=== PATIENT | female | born 1995 ===

== ENCOUNTER 2021-02-16 22:40 | Emergency (ER) | payer OTHER ==
--- NOTE | 2021-02-17 01:03 | ER ---
Nurse's Notes [facility] Name: Elaina Villegas Age: 25 yrs Sex: Female : 1995 Arrival Date: 02/16/2021 Time: 22:41 Bed 17 Private MD: Diagnosis: Concussion without loss of consciousness;Contusion of unspecified part of head;Sprain of ligaments of cervical spine Presentation: 02/16 22:52 Acuity: TEO 3 sg 22:52 Chief complaint: Patient states: I was jumping on a cornhole board when I slipped and sg fell, hitting the back of my head. Denies LOC but states cannot remember who won or lost the game. Pt states she can recall events right before the fall and after the fall, denies vomiting, denies any bleeding at this time. Coronavirus screen: Client denies travel out of the [place] in the last 14 days. At this time, the client does not indicate any symptoms associated with coronavirus-19. Ebola Screen: Patient negative for fever greater than or equal to 101.5 degrees Fahrenheit, and additional compatible Ebola Virus Disease symptoms Patient denies exposure to infectious person. Patient denies travel to an Ebola-affected area in the 21 days before illness onset. No symptoms or risks identified at this time. Initial Sepsis Screen: Does the patient meet any 2 criteria? No. Patient's initial sepsis screen is negative. Does the patient have a suspected source of infection? No. Patient's initial sepsis screen is negative. Risk Assessment: Do you want to hurt yourself or someone else? Patient reports no desire to harm self or others. Onset of symptoms was February 16, 2021. Care prior to arrival: None. Transition of care: patient was not received from another setting of care. 22:52 Method Of Arrival: Ambulatory sg Historical: - Allergies: 23:36 Celebrex; sg - Home Meds: 23:36 None [Active]; sg - PMHx: 23:36 PCOS; Endometrosis; sg - PSHx: 23:36 ACL; sg - Immunization history:: Adult Immunizations up to date. - Social history:: Smoking status: Patient denies any tobacco usage or history of. Screenin/30 00:09 Abuse screen: Denies threats or abuse. Nutritional screening: No deficits noted. em Tuberculosis screening: No symptoms or risk factors identified. Fall Risk None identified. Assessment: 00:30 General: Appears in no apparent distress. uncomfortable, Behavior is calm, cooperative, em appropriate for age. Pain: Complains of pain in occipital area, base of the skull and left sternocleidomastoid Pain currently is 6 out of 10 on a pain scale. 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 Gait is steady, Speech is normal, Facial symmetry appears normal, Reports a syncopal episode. Cardiovascular: Capillary refill < 3 seconds Patient's skin is warm and dry. Respiratory: Airway is patent Respiratory effort is even, unlabored, Respiratory pattern is regular, symmetrical. GI: Patient currently denies nausea, vomiting. Derm: Skin is intact, is healthy with good turgor, Skin is pink, warm \T\ dry. Musculoskeletal: Capillary refill < 3 seconds, Range of motion: intact in all extremities. 02:00 Reassessment: Patient appears in no apparent distress at this time. Patient and/or em family updated on plan of care and expected duration. Pain level reassessed. Patient is alert, oriented x 3, equal unlabored respirations, skin warm/dry/pink. rates pain 5/10 Patient states feeling better. Vital Signs: 02/16 22:52 Pulse 77; Resp 18; Pulse Ox 98% on R/A; Weight 92.99 kg; Height 5 ft. 9 in. (175.26 sg cm); Pain 6/10; 02/17 00:30 Temp 97.8; em 00:30 BP 126 / 78; em 02/16 22:52 Body Mass Index 30.27 (92.99 kg, 175.26 cm) sg ED Course: 02/16 22:41 Patient arrived in ED. ag3 22:52 Arm band placed on. sg 22:53 Triage completed. sg 23:34 Nawaf Hopkins MD is Attending Physician. tw4 23:53 Paulo Theodore, RN is Primary Nurse. em 02/17 00:21 CT Head Brain wo Cont In Process Unspecified. EDMS 00:30 Patient has correct armband on for positive identification. Bed in low position. Call em light in reach. Adult w/ patient. Pulse ox on. NIBP on. 00:30 Patient maintains SpO2 saturation greater than 95% on room air. em 01:48 CT C Spine In Process Unspecified. EDMS 02:25 No provider procedures requiring assistance completed. Patient did not have IV access em during this emergency room visit. Administered Medications: 01:08 Drug: TORadol 60 mg Route: IM; Site: right gluteus; em 01:45 Follow up: Response: No adverse reaction; Marked relief of symptoms; Pain is decreased em 01:08 Drug: Tylenol 1000 mg Route: PO; em 01:46 Follow up: Response: No adverse reaction; Marked relief of symptoms; Pain is decreased em 01:45 Drug: Flexeril (cyclobenzaprine) 10 mg Route: PO; em 02:27 Follow up: Response: No adverse reaction; Marked relief of symptoms; Pain is decreased em Outcome: 01:02 Discharge ordered by . tw4 02:15 Discharge ordered by . tw4 02:25 Discharged to home ambulatory, with family. em 02:25 Condition: stable 02:25 Discharge instructions given to patient, family, Instructed on discharge instructions, follow up and referral plans. medication usage, Demonstrated understanding of instructions, follow-up care, medications, Prescriptions given X 3. 02:28 Patient left the ED. em Signatures: Dispatcher [employer] Braxton Aguilar RN RN sg Munoz, Edgar, RN RN Nawaf Ellison MD MD tw4 Evelyn Vang ag3
--- NOTE | 2021-02-17 01:03 | EDPHYS ---
Physician Documentation [facility] Name: Elaina Villegas Age: 25 yrs Sex: Female : 1995 Arrival Date: 02/16/2021 Time: 22:41 Bed 17 Private MD: ED Physician Nawaf Hopkins HPI: 02/17 01:27 This 25 yrs old Female presents to ER via Ambulatory with complaints of Fall Injury, tw4 Head Injury-Adult. 01:27 Details of fall: The patient fell from an upright position, while standing, during tw4 sports. Onset: The symptoms/episode began/occurred today. Associated injuries: The patient sustained no obvious injury. Severity of symptoms: At their worst the symptoms were moderate, in the emergency department the symptoms are unchanged. The patient has not experienced similar symptoms in the past. Historical: - Allergies: 02/16 23:36 Celebrex; sg - Home Meds: 23:36 None [Active]; sg - PMHx: 23:36 PCOS; Endometrosis; sg - PSHx: 23:36 ACL; sg - Immunization history:: Adult Immunizations up to date. - Social history:: Smoking status: Patient denies any tobacco usage or history of. ROS: 02/17 01:27 Constitutional: Negative for fever, chills, and weight loss, Eyes: Negative for injury, tw4 pain, redness, and discharge, Cardiovascular: Negative for chest pain, palpitations, and edema, Respiratory: Negative for shortness of breath, cough, wheezing, and pleuritic chest pain, Abdomen/GI: Negative for abdominal pain, nausea, vomiting, diarrhea, and constipation, Back: Negative for injury and pain, MS/Extremity: Negative for injury and deformity. Exam: 01:27 Constitutional: This is a well developed, well nourished patient who is awake, alert, tw4 and in no acute distress. 01:27 Chest/axilla: Normal chest wall appearance and motion. Nontender with no deformity. No lesions are appreciated. Cardiovascular: Regular rate and rhythm with a normal S1 and S2. No gallops, murmurs, or rubs. Normal PMI, no JVD. No pulse deficits. Respiratory: Lungs have equal breath sounds bilaterally, clear to auscultation and percussion. No rales, rhonchi or wheezes noted. No increased work of breathing, no retractions or nasal flaring. Abdomen/GI: Soft, non-tender, with normal bowel sounds. No distension or tympany. No guarding or rebound. No evidence of tenderness throughout. Back: No spinal tenderness. No costovertebral tenderness. Full range of motion. Skin: Warm, dry with normal turgor. Normal color with no rashes, no lesions, and no evidence of cellulitis. MS/ Extremity: Pulses equal, no cyanosis. Neurovascular intact. Full, normal range of motion. Neuro: Awake and alert, GCS 15, oriented to person, place, time, and situation. Cranial nerves II-XII grossly intact. Motor strength 5/5 in all extremities. Sensory grossly intact. Cerebellar exam normal. Normal gait. 01:27 Head/face: Noted is contusion, that is superficial, of the right occipital area. Vital Signs: 02/16 22:52 Pulse 77; Resp 18; Pulse Ox 98% on R/A; Weight 92.99 kg; Height 5 ft. 9 in. (175.26 sg cm); Pain 6/10; 02/17 00:30 Temp 97.8; em 00:30 BP 126 / 78; em 02/16 22:52 Body Mass Index 30.27 (92.99 kg, 175.26 cm) sg MDM: 02/16 23:57 Patient medically screened. tw4 02/17 03:34 Differential diagnosis: abrasion, closed head injury, contusion, fracture. Data tw4 reviewed: vital signs, nurses notes. Data reviewed: lab test result(s), CBC, electrolytes, radiologic studies, CT scan. Data interpreted: Pulse oximetry: Interpretation: normal. Counseling: I had a detailed discussion with the patient and/or guardian regarding: the historical points, exam findings, and any diagnostic results supporting the discharge/admit diagnosis, lab results, radiology results. Special discussion: Based on the patient's history, exam and DX evaluation, there is no indication for emergent intervention or inpatient TX. It is understood by the patient/guardian that if the SXs persist or worsen they need to return immediately for re-evaluation. I discussed with the patient/guardian in detail that at this point there is no indication for admission to the hospital. It is understood, however, that if the symptoms persist or worsen the patient needs to return immediately for re-evaluation. 02/16 23:57 Order name: CT Head Brain wo Cont tw4 02/17 01:09 Order name: CT C Spine tw4 Administered Medications: 01:08 Drug: TORadol 60 mg Route: IM; Site: right gluteus; em 01:45 Follow up: Response: No adverse reaction; Marked relief of symptoms; Pain is decreased em 01:08 Drug: Tylenol 1000 mg Route: PO; em 01:46 Follow up: Response: No adverse reaction; Marked relief of symptoms; Pain is decreased em 01:45 Drug: Flexeril (cyclobenzaprine) 10 mg Route: PO; em 02:27 Follow up: Response: No adverse reaction; Marked relief of symptoms; Pain is decreased em Disposition: 02/17/21 02:15 Discharged to Home. Impression: Concussion without loss of consciousness, Contusion of unspecified part of head, Sprain of ligaments of cervical spine. - Condition is Stable. - Discharge Instructions: Contusion, Post-Concussion Syndrome, Cervical Sprain, Head Injury, Adult, [id number]. - Prescriptions for Ibuprofen 800 mg Oral Tablet - take 1 tablet by ORAL route every 8 hours As needed take with food; 30 tablet. Tramadol 50 mg Oral Tablet - take 1 tablet by ORAL route every 8 hours as needed; 12 tablet. Cyclobenzaprine 5 mg Oral Tablet - take 1 tablet by ORAL route 3 times per day As needed; 15 tablet. - Medication Reconciliation Form, Thank You Letter, Antibiotic Education, Prescription Opioid Use form. - Follow up: Private Physician; When: Upon discharge from the Emergency Department; Reason: Recheck today's complaints, Continuance of care, Re-evaluation by your physician. - Problem is new. - Symptoms have improved. Signatures: Dispatcher [employer] EDBraxton Dykes RN RN Paulo Theodore RN RN em Wadley, Terrence, MD MD tw4 Corrections: (The following items were deleted from the chart) 01: 01:02 02/17/2021 01:02 Discharged to Home. Impression: Concussion without loss of tw4 consciousness; Contusion of unspecified part of head. Condition is Stable. Forms are Medication Reconciliation Form, Thank You Letter, Antibiotic Education, Prescription Opioid Use. Follow up: Private Physician; When: Upon discharge from the Emergency Department; Reason: Recheck today's complaints, Continuance of care, Re-evaluation by your physician. Problem is new. Symptoms have improved. tw4 02:28 02:15 02/17/2021 02:15 Discharged to Home. Impression: Concussion without loss of em consciousness; Contusion of unspecified part of head; Sprain of ligaments of cervical spine. Condition is Stable. Prescriptions for Ibuprofen 800 mg Oral Tablet - take 1 tablet by ORAL route every 12 hours As needed take with food; 20 tablet. and Forms are Medication Reconciliation Form, Thank You Letter, Antibiotic Education, Prescription Opioid Use. Follow up: Private Physician; When: Upon discharge from the Emergency Department; Reason: Recheck today's complaints, Continuance of care, Re-evaluation by your physician. Problem is new. Symptoms have improved. tw4
[2021-02-17] MEDS ORDERED: ACETAMINOPHEN 500 MG TAB ONE (01:20)
[2021-02-17] MEDS ORDERED: KETOROLAC 30 MG/ML INJ ONE (01:21)
[2021-02-17] MEDS ORDERED: CYCLOBENZAPRINE 10 MG TAB ONE (02:00)
[2021-02-17 02:35] VITALS: O2SAT 98
[2021-02-17 02:36] VITALS: BP 126/78; TEMP 97.8
--- NOTE | 2021-02-17 12:18 | RAD REPORT ---
EXAM DESCRIPTION: Head Brain Wo Cont 02/17/2021 12:25 AM CDT CLINICAL HISTORY: 25 years, Female, TRAUMA COMPARISON: None. FINDINGS: Multiple transaxial tomograms of the brain were obtained from the base of the skull to the vertex without contrast. 2-D multiplanar reformats and the coronal and sagittal plane were performed and reviewed. An individualized dose optimization technique, Automated Exposure Control, was utilized for the perfo rmed procedure. Brain parenchyma as well as the albright and white matter differentiation demonstrate to be unremarkable. There is no midline shift and/or mass effect. There is no evidence for acute hemorrhage and/or infar ction. Lateral ventricles and cisterns displace normal appearance. No intra or extra axial fluid collections were seen. The calvarium is intact with no evidence for fracture. The visualized portions of the paranasal sinuses demonstrated presence of a probable mucus retention cyst inferior left maxi llary measuring 2.4 cm and orbits demonstrate to be clear. IMPRESSION: No acute intracranial hemorrhage. 2.4 cm probable mucus retention cyst left maxillary sinus. Electronically signed by: Arnaldo Argueta MD 02/17/2021 12:26 AM CDT Due to temporary technical issues with the PACS/Fluency reporting system, reports are being signed by the in house radiologists without review as a courtesy to insure prompt reporting. The interpreting radiologist is fully responsible for the content of the report.
--- NOTE | 2021-02-17 12:34 | RAD REPORT ---
EXAM DESCRIPTION: C Spine Wo Con 02/17/2021 1:59 AM CDT CLINICAL HISTORY: 25 years, Female, PAIN COMPARISON: None TECHNIQUE: Multiple axial CT images through the cervical spine were obtained at 2 mm slice thickness at 2 mm interval reconstruction. In addition 2-D multiplanar reformats and the sagittal coronal plan e were performed and reviewed. An individualized dose optimization technique, Automated Exposure Control, was utilized for the perfo rmed procedure. FINDINGS: There is slight straightening of the cervical spine most likely related to cervical collar . The alignment, vertebral body heights, and disc spaces are normal. There is no evidence of fractu re or subluxation. There are no significant degenerative changes. The spinal canal demonstrate no arpit dence for significant stenosis. Neural foramina demonstrate to be unremarkable. The uncovertebral kamilah nts demonstrate to be normal with no evidence for jumped facet. There is no prevertebral soft tissue swelling. Sagittal coronal reformatted images demonstrate no subluxation or bony abnormalities. IMPRESSION: CT CERVICAL SPINE NEGATIVE FOR FRACTURE OR SUBLUXATION. Electronically signed by: Arnaldo Argueta MD 02/17/2021 2:00 AM CDT Due to temporary technical issues with the PACS/Fluency reporting system, reports are being signed by the in house radiologists without review as a courtesy to insure prompt reporting. The interpreting radiologist is fully responsible for the content of the report.
== END 2021-02-17 02:28 | disposition home or self-care (01) ==
LOC: ER 22:40
DX: S06.0X0A Concussion without loss of consciousness, initial encounter (principal); W19.XXXA Unspecified fall, initial encounter; Y93.79 Activity, other specified sports and athletics; Y92.9 Unspecified place or not applicable; Z88.8 Allergy status to other drugs, medicaments and biological substances
CPT/HCPCS: 70450; 72125; 96372; 99284